=== PATIENT | female | born 1965 | race Caucasian/White ===

== ENCOUNTER 2021-10-03 11:39 | Emergency (ER) | payer MEDICARE ==
[2021-10-03] MEDS ORDERED: PREDNISONE 20MG20 MG PO (16:34)
[2021-10-03] MEDS ORDERED: NORCO 5-325 TA1 EACH PO (16:34)
== END 2021-10-03 17:35 | disposition home or self-care (01) ==
LOC: FER 11:39
DX: S39.012A Strain of muscle, fascia and tendon of lower back, initial encounter (principal); M54.41 Lumbago with sciatica, right side; M54.42 Lumbago with sciatica, left side; I10 Essential (primary) hypertension; Z88.0 Allergy status to penicillin
CPT/HCPCS: 72131; 96372; J1100; J1885